=== PATIENT | female | born 1995 | race Caucasian/White ===

== ENCOUNTER 2020-01-06 11:56 | Outpatient (CLI) | payer OTHER ==
[2020-01-06 12:39] LABS: APPEARANCE,URINE SLIGHTLY-CLOUDY; BILIRUBIN,URINE NEGATIVE (NEGATIVE); COLOR,URINE YELLOW; GLUCOSE, URINE NEGATIVE (NEGATIVE); KETONES,URINE NEGATIVE (NEGATIVE); LEUKOCYTE ESTERASE,URINE MODERATE (NEGATIVE); NITRITE,URINE NEGATIVE (NEGATIVE); PROTEIN,URINE NEGATIVE (NEGATIVE); URINE SPECIFIC GRAVITY 1.008; UROBILINOGEN,URINE NEGATIVE mg/dL (<2.0)
[2020-01-06 13:04] LABS: URINE AMPHETAMINES SCREEN NEGATIVE; URINE BARBITURATES SCREEN NEGATIVE; URINE BENZODIAZEPINES SCREEN NEGATIVE; URINE COCAINE SCREEN NEGATIVE; URINE MARIJUANA (THC) SCREEN NEGATIVE; URINE METHADONE SCREEN NEGATIVE; URINE PHENCYCLIDINE SCREEN NEGATIVE
--- NOTE | 2020-01-06 13:17 | Non Stress Test Report ---
Non Stress Test Datetime Report Generated by CPN: 01/06/2020 13:16 DEMOGRAPHIC Test Number: 1 EGA NST: 40.2 VITAL SIGNS Temperature - NST: 97.8 Pulse - NST: 87 RESP - NST: 16 NBPSYS NST: 114 NBPDIA NST: 73 MONITORING Monitor Explained: Monitor Explained; Test Explained; Patient Verbalized Understanding Time on Monitor: 01/06/2020 12:21 Time off Monitor: 01/06/2020 13:00 NST Duration: 39 NST INTERVENTIONS NST Interventions: PO Hydration; Reposition Patient Physician Notified NST: A. Call, CNM BABY A: [id number] BABY A Movement : Present Contraction Frequency : irritability FHR Baseline : 130 Accelerations : 15X15 Decelerations : None Variability : Moderate 6-25bpm NST Review: Does Not Meet Criteria for Reactive NST NST Review and Verified By : Damian TAYLOR Results: Reactive NST REPORT Report Trigger: Send Report
== END 2020-01-06 13:12 | disposition home or self-care (01) ==
LOC: LC 11:56
PROVIDERS: ATTEND Obstetrics & Gynecology
PROC: 4A1HXCZ Monitoring of Products of Conception, Cardiac Rate, External Approach (ICD-10-PCS; principal; 2020-01-06)
DX: O36.8130 Decreased fetal movements, third trimester, not applicable or unspecified (principal); O47.1 False labor at or after 37 completed weeks of gestation; O48.0 Post-term pregnancy; Z3A.40 40 weeks gestation of pregnancy
CPT/HCPCS: 80307; 81005; 84112

== ENCOUNTER 2020-01-07 13:28 | Inpatient (IN) | payer OTHER ==
[2020-01-11] MEDS ORDERED: OXYTOCIN/NORMAL SALINE 20 UNIT/1,000 ML RTUINJ IV PRN ×2 (06:27→07:51)
[2020-01-11] MEDS ORDERED: RINGERS SOLUTION,LACTATED 1,000 ML IV PRN ×2 (06:27→07:21)
[2020-01-11] MEDS ORDERED: PENICILLIN G POTASSIUM 5,000,000 UNIT in DEXTROSE 5%-WATER 100 ML IV ONE ×2 (06:27→07:21)
[2020-01-11] MEDS ORDERED: RINGERS SOLUTION,LACTATED 1,000 ML IV ONE ×2 (06:27→07:21)
[2020-01-11] MEDS ORDERED: LIDOCAINE 1% INJ-PF (10 MG/ML) 30 ML SDV ONE (07:25)
[2020-01-11] MEDS ORDERED: OXYTOCIN 10 UNIT/ML VIAL ONE (07:25)
[2020-01-11] MEDS ORDERED: MISOPROSTOL 0.2 MG TABLET ONE (07:25)
[2020-01-11] MEDS ORDERED: OXYTOCIN/NORMAL SALINE 20 UNIT/1,000 ML RTUINJ ONE (07:25)
[2020-01-11 07:26] LABS: ABSOLUTE EOSINOPHILS # (AUTO) 0.1 10^3/uL (0.0-0.6); ABSOLUTE LYMPHOCYTES (AUTO) 1.8 10^3/uL (0.5-4.7); ABSOLUTE MONOCYTES (AUTO) 0.6 10^3/uL (0.1-1.4); ABSOLUTE NEUT (AUTO) 5.6 10^3/uL (1.7-8.2); BASOPHILS % (AUTO) 0.3 % (0-2); EOSINOPHILS % (AUTO) 0.6 % (0-6); HEMATOCRIT 30.3 % (36.0-47.0); HEMOGLOBIN 10.2 g/dL (12.0-15.5); LYMPHOCYTES % (AUTO) 22.2 % (13-45); MEAN CORPUSCULAR HGB CONC 33.5 g/dL (32.0-36.0); MEAN CORPUSCULAR VOLUME 78 fl (80-97); MONOCYTES % (AUTO) 7.1 % (3-13); PLATELET COUNT 197 10^3/uL (150-450); RED CELL DISTRIBUTION WIDTH 14.5 % (11.5-14.0); SEGMENTED NEUTROPHILS % (AUTO) 69.8 % (42-78); TOTAL CELLS COUNTED % (AUTO) 100 %; WHITE BLOOD COUNT 8.1 10^3/uL (4.0-10.5)
[2020-01-11 07:39] LABS: APPEARANCE,URINE CLEAR; BILIRUBIN,URINE NEGATIVE (NEGATIVE); COLOR,URINE YELLOW; GLUCOSE, URINE NEGATIVE (NEGATIVE); KETONES,URINE NEGATIVE (NEGATIVE); LEUKOCYTE ESTERASE,URINE NEGATIVE (NEGATIVE); NITRITE,URINE NEGATIVE (NEGATIVE); PROTEIN,URINE NEGATIVE (NEGATIVE); URINE SPECIFIC GRAVITY 1.009; UROBILINOGEN,URINE NEGATIVE mg/dL (<2.0)
[2020-01-11 07:46] LABS: URINE AMPHETAMINES SCREEN NEGATIVE; URINE BARBITURATES SCREEN NEGATIVE; URINE BENZODIAZEPINES SCREEN NEGATIVE; URINE COCAINE SCREEN NEGATIVE; URINE MARIJUANA (THC) SCREEN NEGATIVE; URINE METHADONE SCREEN NEGATIVE; URINE PHENCYCLIDINE SCREEN NEGATIVE
[2020-01-11] MEDS ORDERED: PENICILLIN G-K 5 MILLION UNIT VIAL ONE (08:05)
--- NOTE | 2020-01-11 09:12 | Admission Physical ---
Datetime Report Generated by CPN: 01/11/2020 09:12 CURRENT ADMISSION Hx Assessment: The History has been Reviewed and is Current Chief Complaint: Scheduled Induction of Labor Indication for Induction: Post Dates Admit Impression : Term, Intrauterine Admit Plan: Admit to Unit; Initiate Labor Induction Protocol ALLERGIES Medication Allergies: No Medication Allergies: No Known Allergies (01/11/2020) Latex: No Latex Allergies Food Allergies: none Environmental Allergies: none OBSTETRICAL HISTORY EDC: 01/04/2020 00:00 : 2 Para: 1 Term: 1 : 0 SAB: 0 IAB: 0 Ectopic: 0 Livin Cesareans: 0 VBACs: 0 Multiple Births: 0 Gestational Diabetes: No Rh Sensitization: No Incompetent Cervix: No JUAN: No Infertility: No ART Treatment: No Uterine Anomaly: No IUGR: No Hx Previous C/S: No Macrosomia: No Hx Loss/Stillborn: No PIH: No Hx : No Placenta Previa/Abruption: No Depression/PP Depression: No PTL/PROM: No Post Hemorrhage: No Current Procedures: Ultrasound Obstetrical History Comments: 2013 G2- current SEE RECORDS Alcohol: No Marijuana : No Cocaine: No Other Illicit Drugs: No Cigarettes: Never Smoker. 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 Heart Disease: No Hosp/Surgery: No Autoimmune Disorder: No Anesthetic Complications: No Kidney Disease: No Abnormal Pap Smear: Yes Neuro/Epilepsy: No Psychiatric Disorders: No Other Medical Diseases: No Hepatitis/Liver Disease: No Significant Family History: No Varicosities/Phlebitis: No Trauma/Violence : No Thyroid Dysfunction: No Medical History Comments: ASCUS PAP 2019/pe tubes in ears/tonsils/wisdom teeth/hemorrhoids/ child [id number] INFECTIOUS HISTORY Gonorrhea: No Genital Herpes: No Chlamydia: No Tuberculosis: No Syphilis: No Hepatitis: No HIV/AIDS Exposure: No Rash or Viral Illness: No HPV: No PHYSICAL EXAM General: Normal Heart: Normal Lungs: Normal Back: Normal Abdomen: Normal Genitourinary Exam: Normal Extremities: Normal Pelvic Type: Adequate Physical Exam Comments: pelvis proven to 7lbs 9 oz Vital Signs: Reviewed; Within Normal Limits VAGINAL EXAM Dilatation: 2 Effacement: 50 Station: -3 Contraction Comments: irregular MEMBRANES Membranes: Intact FETUS A EGA: 41.0 Monitoring: External US FHR- Baseline: 135 Variability: Moderate 6-25bpm Accelerations: 15X15 Decelerations: None FHR Category: Category I Estimated Weight (gm): 3577 Presentation: Vertex Admit Comment: 24yo at 41wga into L_D for IOL secondary to postdates. Pt is GBS positive, O positive, Rubella immune with an ASCUS pap neg HPV. No other significant hx. Pt was admitted this am and on pitocin at this time. Plan is to continue IOL with pitocin. Dr. Harp is the MD regional administrative assistant today and aware of plan. PLANS FOR LABOR AND DELIVERY Labor and Delivery: None Pain Management: Epidural Feeding Preference: Breast Circumcision: N/A INFORMED CONSENT Assignment: Zaira Harp MD Signature: with User ID: Mariaa : with User ID: [email or web address]
[2020-01-11] MEDS ORDERED: PENICILLIN G POTASSIUM 2,500,000 UNIT in DEXTROSE 5%-WATER 50 ML IV SCH (10:29)
[2020-01-11] MEDS: PENICILLIN G POTASSIUM 2,500,000 UNIT in DEXTROSE 5%-WATER 50 ML IV SCH ×2 (12:58→17:34)
[2020-01-11] MEDS ORDERED: EPHEDRINE SULFATE INJ 50 MG/1 ML AMPULE ONE (16:23)
[2020-01-11] MEDS ORDERED: FENTANYL CITRATE INJ/PF 100 MCG/2 ML AMPUL ONE (16:23)
[2020-01-11] MEDS ORDERED: BUPIVACAINE HCL 0.25 % INJ/PF (2.5 MG/1 ML) 30 ML VIAL ONE (16:24)
[2020-01-11] MEDS ORDERED: FENTANYL/BUPIVACAINE/NS/PF 300 MCG/150 ML RTUINJ EPI ONE (16:24)
[2020-01-12] MEDS ORDERED: OXYTOCIN/NORMAL SALINE 20 UNIT/1,000 ML RTUINJ ONE ×2 (03:25→07:39)
[2020-01-12] MEDS ORDERED: CITRIC ACID/SODIUM CITRATE ORAL SOLN 15 ML UDCUP ONE (03:58)
[2020-01-12] MEDS ORDERED: CEFAZOLIN 1 GM/D5W RTU 2 GM/100 ML RTUPB IV ONE (03:58)
[2020-01-12] MEDS ORDERED: LIDOCAINE 2% INJ-PF (20 MG/ML) 10 ML AMPUL ONE (04:06)
[2020-01-12] MEDS ORDERED: ONDANSETRON HCL INJ/PF 4 MG/2 ML SDV ONE (04:06)
[2020-01-12] MEDS ORDERED: MIDAZOLAM 2 MG/2 ML INJ ONE (04:07)
[2020-01-12] MEDS ORDERED: SODIUM BICARBONATE 4.2% INJ (2.5 MEQ/5 ML) VIAL ONE (04:07)
[2020-01-12] MEDS ORDERED: OXYTOCIN 10 UNIT/ML VIAL ONE (04:07)
[2020-01-12] MEDS ORDERED: PHENYLEPHRINE HCL INJ/PF 10 MG/1 ML SDV ONE (04:10)
[2020-01-12] MEDS ORDERED: ACETAMINOPHEN 1,000 MG/100 ML RTUPB IV PRN (05:07)
[2020-01-12] MEDS ORDERED: MEASLES,MUMPS&RUBELLA VACC/PF 0.5 ML VIAL SUBCUT PRN (05:07)
[2020-01-12] MEDS ORDERED: OXYTOCIN/NORMAL SALINE 20 UNIT/1,000 ML RTUINJ IV PRN (05:07)
[2020-01-12] MEDS ORDERED: MORPHINE SULFATE 10 MG/ML INJ IV PRN (05:07)
[2020-01-12] MEDS ORDERED: PROMETHAZINE HCL INJ 25 MG/1 ML VIAL IV PRN (05:07)
[2020-01-12] MEDS ORDERED: SIMETHICONE 80 MG TAB.CHEW PO PRN (05:07)
[2020-01-12] MEDS ORDERED: RINGERS SOLUTION,LACTATED 1,000 ML IV PRN (05:07)
[2020-01-12] MEDS ORDERED: ACETAMINOPHEN 325 MG TABLET PO PRN (05:07)
[2020-01-12] MEDS ORDERED: DIPH/PERTUSS(ACELL)/TETANUS VAC/PF 0.5 ML SYR (>=10YO) IM PRN (05:07)
[2020-01-12] MEDS ORDERED: OXYCODONE-ACETAMINOPHEN 5-325 MG TABLET PO PRN (05:07)
--- NOTE | 2020-01-12 05:14 | Operative Report ---
Operative Report DATE OF SURGERY: 01/12/20 PREOPERATIVE DIAGNOSIS: IUP at 40 weeks and 1 day, face presentation, failure to descend POSTOPERATIVE DIAGNOSIS: Same OPERATION: Primary with bilateral tubal ligation SURGEON: ALDO MADDOX ANESTHESIA: Epidural TISSUE REMOVED OR ALTERED: Bilateral fallopian tube segments COMPLICATIONS: None ESTIMATED BLOOD LOSS: 800 INTRAOPERATIVE FINDINGS: Female vertex presentation face presentation, PROCEDURE: The patient was taken to the operating room, prepared and draped in anormal sterile fashion in a supine position with a leftward tilt. A transverse skin incision was made with a scalpel and carried through tothe underlying layer of fascia with the same scalpel. The fascia was excised in the midline and extended laterally with Christa. The fascia was then dissected from the rectus muscle sharply with Christa and the rectus muscle was divided and the peritoneal cavity was entered sharply with the same Metzenbaum. With good visualization of the bladder and the uterus the bladder blade was inserted. The hysterotomy was nicked with a scalpel and extended laterally with surgeon finger fraction. The was thendelivered atraumatically. The nose and mouth were suctioned with a suction bulb, the cord was clamped and cut and handed off to awaiting pediatricians. Cord blood was collected. The placenta was removed manually. The uterus was exteriorized and cleared of clots and debris. The hysterotomy was closed with 0 Monocryl in a running, locked fashion. A second layer of the same suture was used to imbricate to ensure hemostasis. Attention was then turned to the fallopian tubes where the right fallopian tube was grasped with a [place], the mesosalpinx was divided with a Bovie. a 3-1/2 cm segment of fallopian tube was tied off with 2 pieces of 2-0 chromic.this segment was ligated using Metzenbaums and the pedicles were made hemostatic with the Bovie. This procedure was repeated on the left fallopian tube without difficulty. The uterus was returned to the abdomen and peritoneal cavity was cleared of clots and debris. The pedicles were inspected and they were still hemostatic. The rectus muscle and peritoneum were repaired with mattress stitch of 2-0 Chromic. The fascia was closed with 0-Vicryl. The subcutaneous layer was closed with plain catgut and the skin was closed with 4-0 Vicryl. The patient tolerated the procedure well. Sponge, lap, and needle counts correct x2 and the patient was taken to recovery in stable condition.
[2020-01-12] MEDS ORDERED: AMPICILLIN SOD/SULBACTAM 3 GM VIAL IV SCH (05:15)
[2020-01-12] MEDS ORDERED: KETOROLAC TROMETHAMINE INJ/PF 30 MG/1 ML SDV ONE (05:39)
[2020-01-12] MEDS ORDERED: ACETAMINOPHEN 1,000 MG/100 ML RTUPB IV ONE (05:39)
[2020-01-12] MEDS: KETOROLAC TROMETHAMINE INJ/PF 30 MG/1 ML SDV IV SCH ×3 (05:57→21:23)
[2020-01-12] MEDS ORDERED: MORPHINE SULFATE 10 MG/ML INJ ONE (06:26)
[2020-01-12] MEDS ORDERED: AMPICILLIN SOD/SULBACTAM 3 GM VIAL ONE (07:21)
[2020-01-12] MEDS: AMPICILLIN SODIUM/SULBACTAM NA 3 GM in NORMAL SALINE 100 ML IV SCH ×3 (07:31→23:54)
[2020-01-12] MEDS ORDERED: OXYCODONE-ACETAMINOPHEN 5-325 MG TABLET ONE (07:37)
[2020-01-12] MEDS: PENICILLIN G POTASSIUM 2,500,000 UNIT in DEXTROSE 5%-WATER 50 ML IV SCH ×2 (08:54→09:55)
[2020-01-12] MEDS: DOCUSATE SODIUM 100 MG CAPSULE PO SCH ×2 (10:23→18:04)
[2020-01-12] MEDS: PRENATAL VITAMIN W DHA CAPSULE PO SCH (10:23)
--- NOTE | 2020-01-12 11:01 | Delivery Summary ---
Del Sum A-C Datetime Report Generated by CPN: 01/12/2020 11:00 DELIVERY PERSONNEL DELIVERY PERSONNEL: [id number] Delivery Doctor:: Zaira Harp MD Anesthesiologist:: Ynes HORTICULTURAL SERVICES SUPERVISOR:: Saul Rojelio, HORTICULTURAL SERVICES SUPERVISOR Development Executive:: Gisell Pink, RNC Nurse Practitioner:: BELLE Ghosh Laundry Superintendent/OUTSEWER: ST Fco Laundry Superintendent/OUTSEWER: Leeann Hinson, ST MATERNAL INFORMATION Delivery Anesthesia: Epidural Medications After Delivery: Pitocin Bolus-Please Comment Meds After Delivery Comment: Pitocin 20 units/1000ml NSS Delivery QBL: 2345 Maternal Complications: None LABOR SUMMARY EDC: 01/04/2020 00:00 No. Babies in Womb: 1 Attempted: No Labor Anesthesia: Epidural LABOR INFORMATION Reason for Induction: Post Dates Onset of Labor: 01/11/2020 14:39 Complete Dilatation: 01/12/2020 03:29 Group B Beta Strep: positive Antibiotics # of Doses: 7 Antibiotics Time of Last Dose: 0200 Name of Antibiotic Given: PCN Steroids Given: None Reason Steroids Not Administered: Not Applicable MEMBRANES Membranes Rupture Method: Spontaneous Rupture of Membranes: 01/11/2020 14:39 Length of Rupture (hr): 13.75 Amniotic Fluid Color: Clear Amniotic Fluid Amount: Scant Amniotic Fluid Odor: Normal STAGES OF LABOR Stage 1 hr: 12 Stage 1 min: 50 Stage 2 hr: 0 Stage 2 min: 55 Stage 3 hr: 0 Stage 3 min: 1 Total Time in Labor hr: 13 Total Time in Labor min: 46 VAGINAL DELIVERY Laceration #1: None Laceration Extension #1: N/A Laceration Repair: Not Applicable Sponge Count Correct: N/A CSECTION DELIVERY Primary Indication: Transverse/Complex Presentation Other Primary Indication: Face Presentation Secondary Indication: N/A CSection Urgency: Non-Scheduled CSection Incidence: Primary Labor: Labor Elective: Nonelective CSection Incision: Lower Uterine Transverse BABY A INFORMATION Delivery Date/Time: 01/12/2020 04:24 Method of Delivery: Nurse Controlled Delivery: No Born in Route : No : N/A Forceps: N/A Vacuum Extraction: N/A Shoulder Dystocia : No PRESENTATION/POSITION BABY A Presentation: Cephalic Cephalic Presentation: Face Vertex Position: Right Mentum Posterior Breech Presentation: N/A PLACENTA INFORMATION BABY A Placenta Delivery Time : 01/12/2020 04:25 Placenta Method of Delivery: Spontaneous Placenta Status: Delivered SCORES BABY A Heart Rate 1 min: >100 bpm Resp Effort 1 min: Slow, Irregular Reflex Irritability 1 min: Grimace Muscle Tone 1 min: Some Flexion of Extremities Color 1 min: Body [place], Extremities Blue Resuscitation Effort 1 min: Tactile Stimulation; Oxygen SCORE 1 MIN: 6 Heart Rate 5 min: >100 bpm Resp Effort 5 min: Slow, Irregular Reflex Irritability 5 min: Cough or Sneeze or Pulls Away Muscle Tone 5 min: Some Flexion of Extremities Color 5 min: Body [place], Extremities Blue Resuscitation Effort 5 min: Oxygen SCORE 5 MIN: 7 INFANT INFORMATION BABY A Gestational Age at Delivery: 41.1 Gestational Status: Late Term- 41- 41.6 Weeks Outcome : Liveborn Infant Condition : Critical Sex: Female IDENTIFICATION BABY A Infant Verification Date/Time: 01/12/2020 04:26 ID Band Number: [id number] Mother's Name Verified: Yes RN Verifying Infant: D Bellavance RN/C Gaspar RN WEIGHT/LENGTH BABY A Birthweight (gm): 3690 Weight (lb): 8 Weight (oz): 2 Infant Length (in): 20.00 Infant Length (cm): 50.80 CORD INFORMATION BABY A No. Cord Vessels: 3 Nuchal Cord : N/A Cord Blood Taken: Yes-For Eval (Mom's Blood Type - or O+) Suction: Mouth; Nose ASSESSMENT BABY A Skin to Skin: No Skin to Skin Time (min): 0 Lock Installer/ALS Called : Yes Care By: Prashanth ODONNELL Transferred To: NICU
[2020-01-12] MEDS: OXYCODONE-ACETAMINOPHEN 5-325 MG TABLET PO PRN ×2 (11:39→15:42)
[2020-01-13] MEDS: IBUPROFEN 800 MG TABLET PO SCH ×4 (06:21→23:48)
[2020-01-13 06:35] LABS: HEMATOCRIT 22.8 % (36.0-47.0); MEAN CORPUSCULAR HEMOGLOBIN 26.2 pg (27.0-33.4); MEAN CORPUSCULAR HGB CONC 33.7 g/dL (32.0-36.0); MEAN CORPUSCULAR VOLUME 78 fl (80-97); PLATELET COUNT 192 10^3/uL (150-450); RED BLOOD COUNT 2.94 10^6/uL (3.72-5.28); RED CELL DISTRIBUTION WIDTH 14.8 % (11.5-14.0)
[2020-01-13 06:38] LABS: HEMOGLOBIN 7.7 g/dL (12.0-15.5)
[2020-01-13] MEDS: PRENATAL VITAMIN W DHA CAPSULE PO SCH (09:21)
[2020-01-13] MEDS: DOCUSATE SODIUM 100 MG CAPSULE PO SCH ×2 (09:21→17:05)
--- NOTE | 2020-01-13 11:58 | PDOC PROGRESS REPORT ---
Subjective-OB Progress Note for:: 01/13/20 Subjective: doing well, no c/o, walking to nursery, tolerating low H&H, hsb at BS, , pain under control, scant bleeding Physical Exam (OB) Vital Signs: Temp Pulse Resp BP Pulse Ox 98.2 F 108 H 18 119/75 100 01/13/20 07:46 01/13/20 11:07 01/13/20 07:46 01/13/20 11:07 01/13/20 07:46 Intake & Output 01/12/20 01/13/20 01/14/20 06:59 06:59 06:59 Intake Total 2000 100 Output Total 2400 Balance -400 100 - PIH/Pre-Eclampsia Headache: Absent Epigastric Pain: No Visual Changes: No - Dressing Removed: No - opsite Incision: Dressing Closure Type: Surgical Glue - Lochia Lochia Amount: Scant < 10 ml Lochia Color: Rubra/Red - Abdomen Description: Soft, Round Hernia Present: No Fundal Description: Firm, Midline Fundal Height: u/u - u/2 Objective-Diagnostic Laboratory: 01/13/20 06:15 01/13/20 06:15 WBC 15.0 H RBC 2.94 L Hgb 7.7 L D Hct 22.8 L MCV 78 L MCH 26.2 L MCHC 33.7 RDW 14.8 H Plt Count 192 Assessment and Plan(PN) - Assessment and Plan (1) S/P primary low transverse Is this a current diagnosis for this admission?: Yes (2) Anemia complicating , third trimester Is this a current diagnosis for this admission?: Yes (3) Encounter for induction of labor Is this a current diagnosis for this admission?: Yes - Time Spent with Patient Time with patient: Less than 15 minutes Medications reviewed and adjusted accordingly: Yes - Disposition Anticipated Discharge: Home Within: within 24 hours
[2020-01-13] MEDS ORDERED: IRON SUCROSE COMPLEX INJ/PF 100 MG/5 ML SDV IV ONE (11:59)
[2020-01-13] MEDS ORDERED: IRON SUCROSE COMPLEX 200 MG in NORMAL SALINE 100 ML IV ONE (13:30)
[2020-01-14] MEDS: IBUPROFEN 800 MG TABLET PO SCH ×3 (05:28→18:24)
[2020-01-14] MEDS: PRENATAL VITAMIN W DHA CAPSULE PO SCH (10:47)
[2020-01-14] MEDS: DOCUSATE SODIUM 100 MG CAPSULE PO SCH ×2 (10:47→18:24)
--- NOTE | 2020-01-14 11:08 | PDOC PROGRESS REPORT ---
Subjective-OB Progress Note for:: 01/14/20 Subjective: Doing well, no c/o, mild incisional pain relieved with meds, voiding, Physical Exam (OB) Vital Signs: Temp Pulse Resp BP Pulse Ox 97.4 F 59 L 16 120/86 H 100 01/14/20 08:02 01/14/20 08:02 01/14/20 08:02 01/14/20 08:02 01/14/20 08:02 Intake & Output 01/13/20 01/14/20 01/15/20 06:59 06:59 07:59 Intake Total 2000 900 Output Total 2400 Balance -400 900 - PIH/Pre-Eclampsia Clonus: Negative Headache: Absent Epigastric Pain: No Visual Changes: No - Dressing Removed: No Incision: Well Approximated Closure Type: Surgical Glue - Lochia Lochia Amount: Scant < 10 ml Lochia Color: Rubra/Red - Abdomen Description: Soft Hernia Present: No Fundal Description: Firm, Midline Fundal Height: u/u - u/2 Objective-Diagnostic Laboratory: 01/13/20 06:15 Assessment and Plan(PN) - Assessment and Plan (1) S/P primary low transverse Is this a current diagnosis for this admission?: Yes (2) Anemia complicating , third trimester Is this a current diagnosis for this admission?: Yes (3) Encounter for induction of labor Is this a current diagnosis for this admission?: Yes - Time Spent with Patient Time with patient: Less than 15 minutes Medications reviewed and adjusted accordingly: Yes - Disposition Anticipated Discharge: Home Within: within 24 hours
--- NOTE | 2020-01-14 11:14 | PDOC DISCHARGE SUMMARY ---
Impression - Admit/DC Date/PCP Admission Date/Primary Care Provider: 01/11/20 06:04 JIAN LOZANO NP Discharge Date: 01/14/20 - Discharge Diagnosis (1) S/P primary low transverse Is this a current diagnosis for this admission?: Yes (2) Anemia complicating , third trimester Is this a current diagnosis for this admission?: Yes (3) Encounter for induction of labor Is this a current diagnosis for this admission?: Yes - Additional Information Resuscitation Status: Full Code Discharge Diet: As Tolerated, Regular Discharge Activity: Activity As Tolerated, No Lifting Over 10 Pounds, No Lifting/Push/Pulling, Pelvic Rest, No tub bath Referrals: [facility] [Provider Group] (a 1 week) Prescriptions: Oxycodone HCl/Acetaminophen [Percocet 5-325 mg Tablet] 1 tab PO Q4HP PRN #14 tablet PRN Reason: Ibuprofen [Motrin 800 mg Tablet] 800 mg PO Q6 #30 tablet Home Medications: 95/Iron Fum/Folic/Dha [ + Dha Combo Pack] 1 each PO DAILY 01/06/20 Ibuprofen [Motrin 800 mg Tablet] 800 mg PO Q6 #30 tablet 01/14/20 Oxycodone HCl/Acetaminophen [Percocet 5-325 mg Tablet] 1 tab PO Q4HP PRN #14 tablet 01/14/20 HPI Gestational Age: 41.1 Reason(s) for Admission: PROM, Group B Strep Positive Procedures: NST, Ultrasound Intrapartum Procedure(s): : Low Cervical, Transverse Hospital Course Hospital Course: routine Post op Results Laboratory Results: WBC 15.0 10^3/uL (4.0-10.5) H 01/13/20 06:15 RBC 2.94 10^6/uL (3.72-5.28) L 01/13/20 06:15 Hgb 7.7 g/dL (12.0-15.5) L D 01/13/20 06:15 Hct 22.8 % (36.0-47.0) L 01/13/20 06:15 MCV 78 fl (80-97) L 01/13/20 06:15 MCH 26.2 pg (27.0-33.4) L 01/13/20 06:15 MCHC 33.7 g/dL (32.0-36.0) 01/13/20 06:15 RDW 14.8 % (11.5-14.0) H 01/13/20 06:15 Plt Count 192 10^3/uL (150-450) 01/13/20 06:15 Lymph % (Auto) 22.2 % (13-45) 01/11/20 06:51 [place]oke % (Auto) 7.1 % (3-13) 01/11/20 06:51 Eos % (Auto) 0.6 % (0-6) 01/11/20 06:51 Baso % (Auto) 0.3 % (0-2) 01/11/20 06:51 Absolute Neuts (auto) 5.6 10^3/uL (1.7-8.2) 01/11/20 06:51 Absolute Lymphs (auto) 1.8 10^3/uL (0.5-4.7) 01/11/20 06:51 Absolute Monos (auto) 0.6 10^3/uL (0.1-1.4) 01/11/20 06:51 Absolute Eos (auto) 0.1 10^3/uL (0.0-0.6) 01/11/20 06:51 Absolute Basos (auto) 0.0 10^3/uL (0.0-0.2) 01/11/20 06:51 Seg Neutrophils % 69.8 % (42-78) 01/11/20 06:51 Urine Color YELLOW 01/11/20 06:30 Urine Appearance CLEAR 01/11/20 06:30 Urine pH 7.0 (5.0-9.0) 01/11/20 06:30 Ur Specific [place] 1.009 01/11/20 06:30 Urine Protein NEGATIVE mg/dL (NEGATIVE) 01/11/20 06:30 Urine Glucose (UA) NEGATIVE mg/dL (NEGATIVE) 01/11/20 06:30 Urine Ketones NEGATIVE mg/dL (NEGATIVE) 01/11/20 06:30 Urine Blood NEGATIVE (NEGATIVE) 01/11/20 06:30 Urine Nitrite NEGATIVE (NEGATIVE) 01/11/20 06:30 Urine Bilirubin NEGATIVE (NEGATIVE) 01/11/20 06:30 Urine Urobilinogen NEGATIVE mg/dL (<2.0) 01/11/20 06:30 Ur Leukocyte Esterase NEGATIVE (NEGATIVE) 01/11/20 06:30 Urine Ascorbic Acid NEGATIVE (NEGATIVE) 01/11/20 06:30 Urine Opiates Screen NEGATIVE 01/11/20 06:30 Urine Methadone Screen NEGATIVE 01/11/20 06:30 Ur Barbiturates Screen NEGATIVE 01/11/20 06:30 Ur Phencyclidine Scrn NEGATIVE 01/11/20 06:30 Ur Amphetamines Screen NEGATIVE 01/11/20 06:30 U Benzodiazepines Scrn NEGATIVE 01/11/20 06:30 Urine Cocaine Screen NEGATIVE 01/11/20 06:30 U Marijuana (THC) Screen NEGATIVE 01/11/20 06:30 RPR NONREACTIVE (NONREACTIVE) 01/11/20 06:51 Blood Type O POSITIVE 01/11/20 06:51 Antibody Screen NEGATIVE 01/11/20 06:51 Plan Health Concerns: post op complications, fever, bleeding Plan of Treatment: routine PP care Goals: no complications Time Spent: Less than 30 Minutes
[2020-01-15] MEDS: IBUPROFEN 800 MG TABLET PO SCH ×3 (00:23→12:28)
[2020-01-15] MEDS: DOCUSATE SODIUM 100 MG CAPSULE PO SCH (09:19)
[2020-01-15] MEDS: PRENATAL VITAMIN W DHA CAPSULE PO SCH (09:19)
--- NOTE | 2020-01-15 09:38 | PDOC PROGRESS REPORT ---
Subjective-OB Progress Note for:: 01/15/20 Subjective: feeling alot better today, ready to go home, baby stayed for more evaluation, breast feeding, voiding Physical Exam (OB) Vital Signs: Temp Pulse Resp BP Pulse Ox 97.9 F 69 16 118/79 100 01/15/20 07:31 01/15/20 07:31 01/15/20 07:31 01/15/20 07:31 01/15/20 07:31 Intake & Output 01/14/20 01/15/20 01/16/20 05:59 06:59 06:59 Intake Total Balance - PIH/Pre-Eclampsia Clonus: Negative Headache: Absent Epigastric Pain: No Visual Changes: No - Dressing Removed: No - scant dry drainage noted Incision: Well Approximated Closure Type: Surgical Glue - Lochia Lochia Amount: Scant < 10 ml Lochia Color: Rubra/Red - Abdomen Description: Soft, Round Hernia Present: No Fundal Description: Firm, Midline Fundal Height: u/u - u/2 Objective-Diagnostic Laboratory: 01/13/20 06:15 Assessment and Plan(PN) - Assessment and Plan (1) S/P primary low transverse Is this a current diagnosis for this admission?: Yes (2) Anemia complicating , third trimester Is this a current diagnosis for this admission?: Yes (3) Encounter for induction of labor Is this a current diagnosis for this admission?: Yes - Time Spent with Patient Time with patient: Less than 15 minutes Medications reviewed and adjusted accordingly: Yes - Disposition Anticipated Discharge: Home Within: within 24 hours
[2020-01-15 11:20] VITALS: BP 121/82
== END 2020-01-15 13:48 | disposition home or self-care (01) | DRG 785 ==
LOC: LR 01-11 06:04 → 2S 01-12 07:45
PROVIDERS: ADMIT Obstetrics & Gynecology; ATTEND Obstetrics & Gynecology
PROC: 10D00Z1 Extraction of Products of Conception, Low, Open Approach (ICD-10-PCS; principal; 2020-01-12)
PROC: 0UB70ZZ Excision of Bilateral Fallopian Tubes, Open Approach (ICD-10-PCS; 2020-01-12)
DX: O48.0 Post-term pregnancy (principal); Z30.2 Encounter for sterilization; O32.3XX0 Maternal care for face, brow and chin presentation, not applicable or unspecified; Z37.0 Single live birth; O99.02 Anemia complicating childbirth; D64.9 Anemia, unspecified; O99.824 Streptococcus B carrier state complicating childbirth; Z3A.41 41 weeks gestation of pregnancy
CPT/HCPCS: 1961; 36415; 80307; 81005; 85025; 85027; 86592; 86850; 86900; 86901; 88302; 94760; 94799; J0131; J0295; J0690; J1756; J1885; J2250; J2270; J2370; J2405; J2540; J2590; J3010; J3490; J7050; J7060